=== PATIENT | male | born 1940 | race Caucasian/White ===

== ENCOUNTER 2022-09-27 09:47 | Emergency (ER) | payer OTHER, SELFPAY ==
[2022-09-27 10:00] VITALS: BP 151/53; PULSE 58; RESP 18; TEMP 36.9; O2SAT 100
[2022-09-27 10:02] VITALS: BP 151/53; PULSE 58; RESP 18; TEMP 36.9; O2SAT 100
--- NOTE | 2022-09-27 10:27 | ED.URI ---
HPI - URI/Sore Throat General Chief Complaint: Upper Respiratory Infection Stated Complaint: sinus Time Seen by Provider: 09/27/22 10:17 Source: patient and RN notes reviewed Mode of arrival: ambulatory Limitations: no limitations History of Present Illness HPI Narrative: Patient presents today with a 1+ week history of nasal congestion, rhinorrhea, sinus pressure, dry cough. Denies fever, shortness of breath. He has been using Flonase for his symptoms, which helped initially, but stopped working a few days ago. Denies history of asthma or COPD. Related Data Home Medications Medication Instructions Recorded Confirmed Flonase 09/27/22 TheraTears 09/27/22 amlodipine 10 mg tablet mg 09/27/22 fenofibrate 160 mg tablet mg 09/27/22 metoprolol succinate 25 mg mg PO 09/27/22 tablet,extended release 24 hr multivit with minerals-iron 18 tablet PO 09/27/22 mg-folic ac 400 mcg-vit K 25 mcg tablet (Adults Multivitamin) Allergies Allergy/AdvReac Type Severity Reaction Status Date / Time No Known Allergies Allergy Verified 09/27/22 10:01 Review of Systems Review of Systems: CONSTITUTIONAL: Denies body aches, fever, chills, or sweats. EYES: Denies visual changes, redness, or discharge. ENT: Deniessore throat, or otalgia.+ rhinorrhea, congestion, sinus pressure CARDIOVASCULAR: Denies chest pain, palpitations, or edema. RESPIRATORY: Denies dyspnea.+ cough GASTROINTESTINAL: Denies abdominal pain, nausea, vomiting, or diarrhea. GENITOURINARY: Denies dysuria or hematuria. SKIN: Denies rash, itching, or wounds. MUSCULOSKELETAL: Denies back pain, joint pain, or myalgia. NEUROLOGIC: Denies headache, numbness, tingling, or weakness. PSYCH: Denies depression or anxiety. [facility] Past Medical History Medical History (Updated 09/27/22 @ 10:33 by Talia Covarrubias, [facility], ) High cholesterol History of skin cancer Hypertension Comments At time of signature, I have reviewed and agree with nursing past medical, surgical, social and family history unless otherwise noted. Please see nursing chart for further information. There is no relevant family history pertinent to the presenting complaint Exam Narrative: GENERAL: Well-appearing, well-nourished, and in no acute distress. HEAD: Normocephalic, atraumatic. EYES: EOMI. No redness or drainage. Conjunctivae normal. ENT: Mucous membranes pink and moist. Nares congested. Purulent nasal discharge. Bilateral frontal sinus tenderness. TMs normal bilaterally. Throat normal. Uvula midline. NECK: Normal AROM. Supple. No lymphadenopathy. CHEST: No respiratory distress. Clear to auscultation. HEART: Regular rate and rhythm. No murmur appreciated. Normal peripheral pulses. EXTREMITIES: Normal range of motion. No edema. SKIN: Warm, dry, no rash. Capillary refill normal. Normal skin turgor. NEURO: No focal deficits. Alert and oriented x3. Gait steady. PSYCH: Normal affect. No signs of depression or anxiety. Course Course Level of Care: Express Care Visit Vital Signs Vital signs: Vital Signs Temperature 98.5 F 09/27/22 10:00 Pulse Rate 58 L 09/27/22 10:00 Respiratory Rate 18 09/27/22 10:00 Blood Pressure 151/53 H 09/27/22 10:00 Pulse Oximetry 100 09/27/22 10:00 Oxygen Delivery Room Air 09/27/22 10:00 Temperature 98.5 F 09/27/22 10:02 Pulse Rate 58 L 09/27/22 10:02 Respiratory Rate 18 09/27/22 10:02 Blood Pressure 151/53 H 09/27/22 10:02 Pulse Oximetry 100 09/27/22 10:02 Oxygen Delivery Room Air 09/27/22 10:02 Reviewed. Pt has been instructed to follow up with his PCP regarding his elevated blood pressure today. MDM - URI/Sore Throat MDM Narrative Medical decision making narrative: Exam consistent with sinusitis. Will treat with amoxicillin. Anticipatory guidance given. Differential Diagnosis Differential diagnosis: Likely upper respiratory infection, sinusitis, viral infection and bronchitis Critical
== END 2022-09-27 10:37 | disposition home or self-care (01) ==
PROVIDERS: Emergency Provider Nurse Practitioner
DX: J01.10 Acute frontal sinusitis, unspecified (principal); E78.00 Pure hypercholesterolemia, unspecified; I10 Essential (primary) hypertension; Z85.828 Personal history of other malignant neoplasm of skin
CPT/HCPCS: 99213; G0463

== ENCOUNTER 2023-03-24 10:23 | Emergency (ER) | payer OTHER, SELFPAY ==
[2023-03-24 10:36] VITALS: BP 116/56; PULSE 63; RESP 16; TEMP 37.8; O2SAT 98
--- NOTE | 2023-03-24 10:37 | ED.URI ---
HPI - URI/Sore Throat General Chief Complaint: Upper Respiratory Infection Stated Complaint: + COVID home test today Time Seen by Provider: 03/24/23 10:38 Source: patient Mode of arrival: ambulatory Limitations: no limitations History of Present Illness HPI Narrative: Jayce is an 83-year-old male patient presenting to the clinic today with complaints of runny nose, cough, congestion, fatigue, and diarrhea. Reports that the diarrhea started this morning and he has taken 2 anti diarrhea pills and this has resolved his diarrhea. Did at home COVID test this morning and was positive. Denies any chest pain or shortness of breath. Has had two COVID vaccines MD elicited complaint: cough, rhinorrhea, nasal congestion and other (Fatigue, diarrhea) Related Data Home Medications Medication Instructions Recorded Confirmed amlodipine 10 mg tablet 10 mg DIRECTED 09/27/22 03/24/23 fenofibrate 160 mg tablet 160 mg DIRECTED 09/27/22 03/24/23 multivit with minerals-iron 18 1 tablet PO DIRECTED 09/27/22 03/24/23 mg-folic ac 400 mcg-vit K 25 mcg tablet (Adults Multivitamin) metoprolol tartrate 25 mg tablet 12.5 mg PO BID 10/12/22 03/24/23 Allergies Allergy/AdvReac Type Severity Reaction Status Date / Time No Known Allergies Allergy Verified 10/26/22 11:33 Review of Systems Review of Systems: Pertinent positives per HPI. Patient denies any rash, headache, visual changes, dizziness, cough, shortness of breath, chest pain, palpitations, nausea, vomiting, diarrhea, constipation, abdominal pain, or any urinary issues. PMFSH Past Medical History Medical History High cholesterol History of skin cancer Hypertension Family History Family History Mother Cancer Grandparent Heart disease Social History Social History Smoking status: Never smoker Alcohol intake: never Lack of Transportation: No Lack of Food: Never True Current Housing: I Have Housing Concerned About Future Housing: No Difficulty Paying Gas/Electric Bills: No Difficulty Paying for Meds: No Currently Unemployed: No Education: High School Diploma/GED Difficulty w/ Childcare or Family Care: No Comments At the time of my signature, I reviewed and agree with the nursing past medical, surgical, social, and family history. There is no relevant family history pertinent to the patient complaint. Exam Narrative: General: Well-developed, well nourished, in no apparent distress Head: Normocephalic, atraumatic Eyes: Pupils equally round and reactive to light bilaterally, EOM intact, sclera and conjunctive clear, no discharge, lids normal Ears: TMs intact and congested, ear canals clear, no drainage, grossly hearing normal. Nose: Nares patent, clear nasal discharge, no inflammation, no sinus tenderness. Mouth: Oral pharynx without lesions or masses, good dentition, MMM. Neck: Supple, trachea midline, no enlargement of anterior or posterior cervical nodes, no thyroid masses or goiter palpable. Cardio: Regular rate and rhythm, s1 and s2 normal, no murmur appreciated. Resp: Clear to auscultation bilaterally, no rhonchi, rales, wheezing or rubs Course Course Emergency Course: Portions of this record may have been created with voice recognition software. Level of Care: Express Care Visit Vital Signs Vital signs: Vital Signs Temperature 37.8 C H 03/24/23 10:36 Pulse Rate 63 03/24/23 10:36 Respiratory Rate 16 03/24/23 10:36 Blood Pressure 116/56 L 03/24/23 10:36 Pulse Oximetry 98 03/24/23 10:36 Oxygen Delivery Room Air 03/24/23 10:36 Temperature 37.8 C H 03/24/23 10:36 Pulse Rate 63 03/24/23 10:36 Respiratory Rate 16 03/24/23 10:36 Blood Pressure 116/56 L 03/24/23 10:36 Pulse Oximetry 98 03/24/23 10:36 Oxygen D
[2023-03-24 10:40] VITALS: BP 116/56; PULSE 63; RESP 16; TEMP 37.8; O2SAT 98
== END 2023-03-24 11:22 | disposition home or self-care (01) ==
PROVIDERS: Emergency Provider Nurse Practitioner Family; PCP Family Medicine
DX: U07.1 COVID-19 (principal); E78.00 Pure hypercholesterolemia, unspecified; I10 Essential (primary) hypertension; Z85.828 Personal history of other malignant neoplasm of skin
CPT/HCPCS: 87426; 99213; C9803; G0463

== ENCOUNTER 2024-05-14 09:29 | Emergency (ER) | payer OTHER, SELFPAY ==
--- NOTE | ~2024-05-14 | XR_ITS ---
EXAMINATION: XR chest 2V DATE: 05/14/2024 09:56 INDICATION: One week of dry cough TECHNIQUE: PA and lateral views of the chest were obtained. COMPARISON: Chest radiograph dated 05/14/2015 FINDINGS: Biapical pleural-parenchymal scarring. A couple calcified nodules in the right mid and lower lung zon e and small splenic calcification consistent with old granulomatous disease. No other airspace opacit ies, pulmonary edema, pleural effusion or pneumothorax. The cardiomediastinal silhouette is normal. M ild thoracic spondylosis with chronic mild anterior wedging mid thoracic vertebral bodies. IMPRESSION: 1. No acute cardiopulmonary disease. Reviewed, dictated and finalized at location A. R [employer]
[2024-05-14 09:38] VITALS: BP 141/62; PULSE 51; RESP 16; TEMP 35.7; O2SAT 99
--- NOTE | 2024-05-14 09:48 | ED.URI ---
HPI - URI/Sore Throat General Chief Complaint: Upper Respiratory Infection Stated Complaint: cough,runny nose Time Seen by Provider: 05/14/24 09:40 Source: patient Mode of arrival: ambulatory Limitations: no limitations History of Present Illness HPI Narrative: Jayce is an 84-year-old male patient presenting to the clinic today with complaints of cough and runny nose x1 week. He denies any known fevers. His spouse tested positive for influenza A today in the clinic. He denies any shortness of breath or chest pain. Cough is nonproductive. MD elicited complaint: cough and nasal congestion Related Data Home Medications ?Medication ?Instructions ?Recorded ?Confirmed ?Last Taken ?Type amlodipine 10 mg tablet 10 mg PO DIRECTED 09/27/22 05/14/24 Unknown History fenofibrate 160 mg tablet 160 mg PO DIRECTED 09/27/22 05/14/24 Unknown History multivit with minerals-iron 18 1 tablet PO DIRECTED 09/27/22 05/14/24 Unknown History mg-folic ac 400 mcg-vit K 25 mcg tablet (Adults Multivitamin) metoprolol tartrate 25 mg tablet 12.5 mg PO BID 10/12/22 05/14/24 Unknown History losartan 25 mg tablet 25 mg PO DAILY 01/31/24 05/14/24 Unknown History metoprolol succinate 25 mg 25 mg PO DAILY 05/14/24 05/14/24 Unknown History tablet,extended release 24 hr Allergies Allergy/AdvReac Type Severity Reaction Status Date / Time No Known Allergies Allergy Verified 05/14/24 09:32 Review of Systems Review of Systems: Pertinent positives per HPI. Patient denies any fever, chills, rash, headache, visual changes, dizziness, shortness of breath, chest pain, palpitations, nausea, vomiting, diarrhea, constipation, abdominal pain, or any urinary issues. [facility] Past Medical History Medical History High cholesterol History of skin cancer Hypertension Family History Family History Mother Cancer Grandparent Heart disease Social History Social History Smoking status: Never smoker Alcohol intake: never Lack of Transportation: No Lack of Food: Never True Current Housing: I Have Housing Concerned About Future Housing: No Difficulty Paying Gas/Electric Bills: No Difficulty Paying for Meds: No Currently Unemployed: No Education: High School Diploma/GED Difficulty w/ Childcare or Family Care: No Comments At the time of my signature, I reviewed and agree with the nursing past medical, surgical, social, and family history. There is no relevant family history pertinent to the patient complaint. Exam Narrative: General: Well-developed, well nourished, in no apparent distress Head: Normocephalic, atraumatic Eyes: Pupils equally round and reactive to light bilaterally, EOM intact, sclera and conjunctive clear, no discharge, lids normal Ears: TMs intact and clear, ear canals clear, no drainage, grossly hearing normal. Nose: Nares patent, clear nasal discharge, no inflammation, no sinus tenderness. Mouth: Oral pharynx without lesions or masses, good dentition, MMM. Postnasal drip Neck: Supple, trachea midline, no enlargement of anterior or posterior cervical nodes, no thyroid masses or goiter palpable. Cardio: Regular rate and rhythm, s1 and s2 normal, no murmur appreciated. Resp: Crackles and the left lower base lung field, no rhonchi, wheezing or rubs Course Course Emergency Course: Portions of this record may have been created with voice recognition software. Level of Care: Express Care Visit Vital Signs Vital signs: Vital Signs Temperature 35.7 C L 05/14/24 09:38 Pulse Rate 51 L 05/14/24 09:38 Respiratory Rate 16 05/14/24 09:38 Blood Pressure 141/62 H 05/14/24 09:38 Pulse Oximetry 99 05/14/24 09:38 Oxygen Delivery Room Air 05/14/24 09:38 Temperature 35.7 C L 05/14/24 09:38 Pulse Rate 51 L 05/14/24 09:38 Respiratory Rate 16 05/14/24 09:38 Blood Pressure 141/62 H 05/14/24 09:38 Pulse Oximetry 99 05/14/24 09:38 Oxygen Delivery Room Air 05/14/24 09:38 Vital signs reviewed MDM - URI/Sore Throat MDM Narrative Medical decision making narrative: At the time of visit patient is resting comfortably on the exam table. Patient appears to be nontoxic. Labs: COVID and influenza testing was performed. All testing was negative. Diagnostics: Chest x-ray was performed is negative for any acute cardiopulmonary process. Plan: I suspect patient has URI with cough and congestion/bronchitis. Supportive measures were discussed with the patient and they voiced understanding discharge instructions and agrees to treatment plan. Return precautions reviewed Differential Diagnosis Differential diagnosis: Likely upper respiratory infection, otitis media, sinusitis, viral infection, bronchitis, influenza, pharyngitis and other (COVID) Lab Data Labs: Lab Results 05/14/24 Range/Units 09:45 POC Influenza A Ag Negative (Negative) POC Influenza B Ag Negative (Negative) POC SARS CoV-2 Ag Negative (Negative) Imaging Data Radiologist's impression: ITS Impressions Chest X-Ray 05/14/24 09:56 IMPRESSION: 1. No acute cardiopulmonary disease. Discharge Plan Discharge Clinical Impression: URI with cough and congestion, Bronchitis Patient Disposition: Home, Self-Care Condition: Stable Instructions: Antibiotic Form, Acute Bronchitis (ED), Cold Symptoms (ED) Additional Instructions: Influenza and COVID testing was negative in the clinic today. Chest x-rays negative for any acute cardiopulmonary process. Take prescription medications only as prescribed-albuterol inhaler and prednisone Increase fluids and stay well hydrated Tylenol/motrin for pain/fever Flonase and OTC antihistamines as directed Vicks vapor rub to open sinuses Sinus rinses for congestion Cepacol spray, cough drops, throat lozenges, warm tea with honey/lemon, gargle salt water to soothe throat BRAT diet for diarrhea Clear liquids x 24 hours then advance as tolerated for nausea/vomiting Go to the ED if you develop a worsening in your condition- high fever not controlled by Tylenol or Motrin, dehydration, weakness, lethargy, shortness of breath, or chest pain. Follow up with your PCP in 3-5 days if symptoms persist. Patient Language: Thai Prescriptions: New prednisone 20 mg tablet 40 mg PO DAILY 5 Days Qty: 10 0RF albuterol sulfate 90 mcg/actuation HFA aerosol inhaler 2 puff inhalation Q4-6H PRN (Reason: shortness of breath or wheezing) 30 Days Qty: 8.5 0RF No Action metoprolol succinate 25 mg tablet extended release 24 hr 25 mg PO DAILY amlodipine 10 mg tablet 10 mg PO DIRECTED fenofibrate 160 mg tablet 160 mg PO DIRECTED Adults Multivitamin 18 mg iron-400 mcg-25 mcg Tablet 1 tablet PO DIRECTED losartan 25 mg tablet 25 mg PO DAILY metoprolol tartrate 25 mg tablet 12.5 mg PO BID Follow-up/Referrals: Tivoli,Carl Wayne MD [Primary Care Provider] - Time of Disposition: 10:00 Quality NIHSS Nursing Documentation ED NIHSS nursing documentation: reviewed/agree
[2024-05-14 10:02] LABS: EDCOVIDSCREEN Negative (Negative); EDINFLUASCREEN Negative (Negative); EDINFLUBSCREEN Negative (Negative)
== END 2024-05-14 10:08 | disposition home or self-care (01) ==
PROVIDERS: Emergency Provider Nurse Practitioner Family; PCP Family Medicine
DX: J06.9 Acute upper respiratory infection, unspecified (principal); R05.9 Cough, unspecified; J40 Bronchitis, not specified as acute or chronic; Z20.822 Contact with and (suspected) exposure to COVID-19; I10 Essential (primary) hypertension; E78.00 Pure hypercholesterolemia, unspecified; Z85.828 Personal history of other malignant neoplasm of skin
CPT/HCPCS: 71046; 87426; 87804; 99213; G0463

== ENCOUNTER 2024-11-21 09:14 | Emergency (ER) | payer OTHER, SELFPAY ==
[2024-11-21 09:22] VITALS: BP 151/51; PULSE 65; RESP 16; TEMP 37.9; O2SAT 100
--- NOTE | 2024-11-21 09:24 | ED.URI ---
HPI - URI/Sore Throat General Chief Complaint: Upper Respiratory Infection Stated Complaint: Ears Irritation/Sinus Time Seen by Provider: 11/21/24 09:47 Source: patient and RN notes reviewed Mode of arrival: ambulatory Limitations: no limitations History of Present Illness HPI Narrative: 84-year-old male presents with concern for ear pressure and sinus pressure. Reports cough reports today he started getting a fever. He reports cough but denies difficulty breathing. He denies nausea, vomiting, diarrhea. MD elicited complaint: cough Related Data Home Medications ?Medication ?Instructions ?Recorded ?Confirmed ?Last Taken ?Type amlodipine 10 mg tablet 10 mg PO DIRECTED 09/27/22 05/14/24 Unknown History fenofibrate 160 mg tablet 160 mg PO DIRECTED 09/27/22 05/14/24 Unknown History multivit with minerals-iron 18 1 tablet PO DIRECTED 09/27/22 05/14/24 Unknown History mg-folic ac 400 mcg-vit K 25 mcg tablet (Adults Multivitamin) metoprolol tartrate 25 mg tablet 12.5 mg PO BID 10/12/22 05/14/24 Unknown History losartan 25 mg tablet 25 mg PO DAILY 01/31/24 05/14/24 Unknown History metoprolol succinate 25 mg 25 mg PO DAILY 05/14/24 05/14/24 Unknown History tablet,extended release 24 hr Allergies Allergy/AdvReac Type Severity Reaction Status Date / Time No Known Allergies Allergy Verified 11/21/24 09:18 Review of Systems Review of Systems: CONSTITUTIONAL: Denies malaise, chills, sweats. Reports fever. EYES: Denies visual changes, redness, or discharge. ENT: Reports rhinorrhea, congestion, otalgia CARDIOVASCULAR: Denies chest pain, palpitations, or edema. RESPIRATORY: Reports cough. Denies dyspnea. GASTROINTESTINAL: Denies abdominal pain, nausea, vomiting, diarrhea SKIN: Denies rash or itching. MUSCULOSKELETAL: Denies myalgia. NEUROLOGIC: Denies headache. All systems reviewed & are unremarkable except as noted in HPI and below PMFSH Past Medical History Medical History High cholesterol History of skin cancer Hypertension Family History Family History Mother Cancer Grandparent Heart disease Social History Social History Smoking status: Never smoker Alcohol intake: never Lack of Transportation: No Lack of Food: Never True Current Housing: I Have Housing Concerned About Future Housing: No Difficulty Paying Gas/Electric Bills: No Difficulty Paying for Meds: No Currently Unemployed: No Education: High School Diploma/GED Difficulty w/ Childcare or Family Care: No Comments At time of signature, agree with nursing past medical, surgical, social and family history. There is no relevant family history pertinent to the presenting complaint Exam Narrative: GENERAL: Well-appearing, well-nourished, and in no acute distress. HEAD: Normocephalic EYES: PERRLA, conjunctivae clear ENT: Nares clear. Mucous membranes moist. TM pearly valle with dull light reflex bilaterally; no tragal tenderness. Oropharynx not erythematous without lesions. Tonsils not enlarged and without exudate, no drooling, no hoarseness, no trismus, uvula midline. NECK: Supple. No lymphadenopathy CHEST: Clear to auscultation, breath sounds equal. No wheezing, rhonchi, rales, or stridor. No respiratory distress, speaks in full sentences. HEART: Regular rate and rhythm. No murmur heard. SKIN: Warm, dry, no rash. NEURO: Alert and oriented x3. PSYCH: Normal mood and affect Course Course Emergency Course: Patient is aware of diagnosis, understands and agrees to treatment plan. Anticipatory guidance given. Patient agrees to follow-up as directed and is aware of reasons to seek care at the emergency department. Portions of this record may have been created with voice recognition software Level of Care: Express Care Visit Vital Signs Vital signs: Reviewed. MDM - URI/Sore Throat MDM Narrative Medical decision making narrative: Differential diagnosis considered: [place] virus, strep pharyngitis, allergic rhinitis, upper respiratory tract infection, sinusitis, rhinosinusitis, nasopharyngitis. viral pharyngitis, otitis media, otitis externa, pneumonia, bronchitis, viral cough syndrome, viral syndrome, and influenza. Exam findings show no acute concerns or changes; patient is non-toxic appearing and is in no distress. Patient is appropriate for outpatient treatment and follow-up. Lab Data Attestation: I reviewed the patient's lab results. Critical Care Time Critical Care Time Critical Care Time: No Discharge Plan Discharge Clinical Impression: COVID-19 Patient Disposition: Home Condition: Stable Instructions: How to Recover from COVID-19 at Home (ED) Additional Instructions: Your rapid COVID test is positive. COVID is a virus, antibiotics are not effective against viruses. Your body has to kill viruses. ? Stay home when you are sick, except to get medical care. ? Stay home until your symptoms are resolving and you haven't had a fever for 24 hours. ? If you are self isolating at home where others live, use a separate room and bathroom for sick household members (if possible). Clean any shared rooms as needed, to avoid transmitting the virus. ? Wash your hands often with soap and water for at least 20 seconds, especially after blowing your nose, coughing, or sneezing; going to the bathroom; and before eating or preparing food. ? If soap and water are not available, use an alcohol-based hand cleaner and presser with at least 60% alcohol. ? Have a supply of clean, disposable face masks. Everyone, no matter their COVID diagnosis, should wear face masks while in the home. - Over the counter medications such as Tylenol every 4 hours, ibuprofen every 6 hours (you can alternate these for maximum effect), Mucinex DM for cough, and can help relieve symptoms while your body fights off the virus. Watch for symptoms and learn when to seek emergency medical attention. If someone is showing any of these signs, seek emergency medical care immediately: ? Trouble breathing ? Persistent chest pain/pressure ? Confusion ? Inability to wake or stay awake ? Bluish lips or face Call 911 or call ahead to your local emergency room: Notify the still operator gin that you are seeking care for someone who has or may have COVID Patient Language: Latvian Prescriptions: New Paxlovid 300 mg (150 mg x 2)-100 mg tablet See Rx Instructions .ROUTE .COMPLEX Qty: 30 0RF Rx Instructions: take TWO 150 mg tablets of nirmatrelvir with ONE 100 mg tablet of ritonavir twice daily for 5 days Coricidin HBP Cold and Flu 2-325 mg tablet 1 tablet PO Q4-6H PRN (Reason: cold symptoms) Qty: 14 0RF No Action metoprolol succinate 25 mg tablet extended release 24 hr 25 mg PO DAILY amlodipine 10 mg tablet 10 mg PO DIRECTED fenofibrate 160 mg tablet 160 mg PO DIRECTED Adults Multivitamin 18 mg iron-400 mcg-25 mcg Tablet 1 tablet PO DIRECTED losartan 25 mg tablet 25 mg PO DAILY metoprolol tartrate 25 mg tablet 12.5 mg PO BID Follow-up/Referrals: Anisa,Carl Wayne MD [Primary Care Provider] Time of Disposition: 09:57
[2024-11-21 09:36] LABS: EDCOVIDSCREEN Negative (Negative); EDINFLUASCREEN Negative (Negative); EDINFLUBSCREEN Negative (Negative)
== END 2024-11-21 10:09 | disposition home or self-care (01) ==
PROVIDERS: Emergency Provider Nurse Practitioner; PCP Family Medicine
DX: U07.1 COVID-19 (principal); E78.00 Pure hypercholesterolemia, unspecified; I10 Essential (primary) hypertension; Z85.828 Personal history of other malignant neoplasm of skin
CPT/HCPCS: 87426; 87804; 99213; G0463